=== PATIENT | female | born 1985 | race Caucasian/White ===

== ENCOUNTER 2022-08-19 21:09 | Emergency (ER) | payer MEDICAID ==
[~2022-08-19] VITALS: Ht 167.6 cm; Wt 53.5 kg
[2022-08-20 01:19] VITALS: BP 134/84; TEMP 98.4; O2SAT 99
== END 2022-08-20 01:34 | disposition home or self-care (01) ==
LOC: M ED 21:09
DX: F43.9 Reaction to severe stress, unspecified (principal); F90.9 Attention-deficit hyperactivity disorder, unspecified type; F41.9 Anxiety disorder, unspecified; F32.A Depression, unspecified; F17.200 Nicotine dependence, unspecified, uncomplicated; Z88.0 Allergy status to penicillin; Z88.5 Allergy status to narcotic agent